=== PATIENT | male | born 1985 | race Caucasian/White ===

== ENCOUNTER 2018-10-03 14:28 | Emergency (ER) | payer OTHER ==
[~2018-10-03] VITALS: Ht 180.3 cm; Wt 78.5 kg
[2018-10-03 14:45] VITALS: BP 132/80
--- NOTE | 2018-10-03 16:30 | NUR ---
ER 8 PT AMBULATORY TO ER 8 AT THIS TIME.
--- NOTE | 2018-10-03 17:17 | ER.PDOC ---
General Chief Complaint: Toothache Stated Complaint: TOOTH PAIN Time seen by MD: 17:14 Source: patient Exam Limitations: no limitations History of Present Illness Initial Comments Toothache for the past few days. Timing/Duration: gradual Associated Symptoms: toothache Severity: moderate Allergies: Coded Allergies: No Known Allergies (Unverified , 08/21/13) Past Medical History Medical History: no pertinent history Surgical History: no surgical history Social History Smoking: greater than 1 pack/day Alcohol Use: occassionally Drug Use: none Constitutional: no symptoms reported Mouth: see HPI Throat: no symptoms reported Respiratory: no symptoms reported Cardiovascular: no symptoms reported Gastrointestinal: no symptoms reported All Other Systems: Reviewed and Negative Physical Exam General Appearance: alert, no distress Head/Neck: head nml inspection, neck nml inspection, trachea midline, no lymphadenopathy, thyroid nml Mouth: dental tenderness (left last upper molar) Throat: pharynx nml, voice nml, no airway problems Respiratory: no resp. distress, lungs clear CVS: reg. rate & rhythm, heart sounds nml Abdomen: non-tender, no organomegaly Extremities: non-tender, ROM nml Skin Exam: Normal Color, Warm/Dry NEURO/PSYCH: oriented X3, mood/effect nml Departure Time of Disposition: 17:15 Disposition: 01 HOME, SELF-CARE Impression: Primary Impression: Dental infection Condition: Stable Referrals: PCP,UNKNOWN (PCP) PRIMARY CARE PROVIDER Additional Instructions: Amoxil Tramadol F/U with your Dentist JOANNA Duration or Time Spent with Pa: 30 mins MALENA ECHEVARRIA MD Oct 03, 2018 17:17
[2018-10-03 17:20] VITALS: BP 118/66
[2018-10-03 17:29] VITALS: BP 118/66
== END 2018-10-03 17:22 | disposition home or self-care (01) ==
LOC: ER 14:28
DX: K04.7 Periapical abscess without sinus (principal); F17.210 Nicotine dependence, cigarettes, uncomplicated
CPT/HCPCS: 99283

== ENCOUNTER 2020-10-07 04:22 | Emergency (ER) | payer OTHER ==
[~2020-10-07] VITALS: Ht 180.3 cm; Wt 79.4 kg
[2020-10-07 05:18] VITALS: BP 121/77
--- NOTE | 2020-10-07 05:26 | ER.PDOC ---
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 maker; he has known hep C x 4 years and would like to take the antiviral therapy; no current sx Timing/Duration: other (ongoing disease state x >4 years) Associated Symptoms: denies symptoms Allergies: Coded Allergies: No Known Allergies (Unverified , 08/21/13) Past Medical History Medical History: other (hep c) Surgical History: appendectomy, other (exploratory lap d/t trauma with colon resection) Family History Significant Family History: no pertinent family hx Social History Smoking: cigarettes Alcohol Use: occassionally Drug Use: none, 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) Review of Systems Constitutional: denies no symptoms reported, denies see HPI, denies chills, denies diaphoresis, denies fever, denies malaise, denies weakness, denies other EENTM: denies no symptoms reported, denies see HPI, denies eye pain, denies blurred vision, denies tearing, denies double vision, denies ear pain, denies ear discharge, denies nose pain, denies nose congestion, denies throat pain, denies throat swelling, denies mouth pain, denies mouth swelling, denies other Respiratory: denies no symptoms reported, denies see HPI, denies cough, denies orthopnea, denies shortness of breath, denies stridor, denies wheezing, denies other Cardiovascular: denies no symptoms reported, denies see HPI, denies chest pain, denies edema, denies palpitations, denies syncope, denies other Gastrointestinal: see HPI (hx Hep C) Genitourinary: denies no symptoms reported, denies see HPI, denies discharge, denies dysuria, denies frequency, denies hematuria, denies pain, denies other Musculoskeletal: denies no symptoms reported, denies see HPI, denies back pain, denies gout, denies joint pain, denies joint swelling, denies muscle pain, denies muscle stiffness, denies neck pain, denies other Skin: denies no symptoms reported, denies see HPI, denies change in color, denies change in hair/nails, denies dryness, denies lesions, denies lumps, denies rash, denies other All Other Systems: Reviewed and Negative Physical Exam General Appearance: No Apparent Distress, WD/WN EENT: eyes nml inspection, nml ENT inspection Neck: Non-Tender, Full Range of Motion, Supple Respiratory: lungs clear, normal breath sounds, no respiratory distress, no accessory muscle use CVS: reg rate & rhythm, no murmur Gastrointestinal: Normal Bowel Sounds, Non Tender, Soft Extremities: Non-Tender, Normal Inspection, No Pedal Edema, No Calf Tenderness Neurologic/Psychiatric: Alert, Normal Mood/Affect, Oriented x 3 Skin: Normal Color, Warm/Dry ER DEPART Departure Time of Disposition: 05:24 Disposition: 01 HOME, SELF-CARE Impression: Primary Impression: History of hepatitis C Condition: Stable Patient Instructions: Hepatitis C, [id number] Referrals: PCP,UNKNOWN (PCP) PRIMARY CARE PROVIDER EMILIANO SALEH MD Additional Instructions: Follow up with Dr. Saleh as soon as possible. He can make referral to a Pattern Checker. Return to ER if you develop fever, vomiting or for any other emergent concerns. Duration or Time Spent with Pa: 10 min JAIME VELASQUEZ DO Oct 07, 2020 05:26
[2020-10-07 06:00] VITALS: BP 118/77
== END 2020-10-07 06:00 | disposition home or self-care (01) ==
LOC: ER 04:22
DX: F17.210 Nicotine dependence, cigarettes, uncomplicated (principal); Z86.19 Personal history of other infectious and parasitic diseases
CPT/HCPCS: 99281